=== PATIENT | female | born 1975 ===

== ENCOUNTER → 2016-12-24 | Outpatient (CLI) | payer OTHER ==
--- NOTE | 2016-12-24 13:54 | RAD ---
Indication well-defined mass on screening mammogram. Note is made of the screening examination 10 days earlier demonstrating a well-defined mass at approximately 9:00 position of the left breast. Targeted ultrasound was performed. There is a well-defined mass, compatible with a cyst, at approximately 9:00 position of the breast. It measures approximately 9 mm in greatest dimension. It is compatible with the mammographic finding. IMPRESSION: Apparent cyst at the 9:00 position of the left breast corresponding to the mammographic finding. Follow-up ultrasound and mammography of the left breast suggested in 6 months to further document stability IMPRESSION: BI-RADS 3. Probably benign. Six-month follow-up
== END | disposition home or self-care (01) ==
LOC: US 13:05
PROVIDERS: ATTEND Nurse Practitioner
DX: N63 Unspecified lump in breast (principal)
CPT/HCPCS: 76641

== ENCOUNTER → 2017-06-17 | Outpatient (CLI) | payer OTHER ==
--- NOTE | 2017-06-17 15:54 | RAD ---
DATE: June 17, 2017 EXAM: MAMMO NEIL DIAG LT, BREAST LEFT HISTORY: 6 month follow-up probably benign finding COMPARISON: Mammogram and ultrasound from December 2016. TECHNIQUE: 2-D and 3-D CC and MLO views of the left breast were performed. Limited left breast ultrasound ON was performed. This study was interpreted with the benefit of Computerized Aided Detection (CAD). FINDINGS: The breast parenchyma is extremely dense, category D, which lowers the sensitivity of mammography. There is no worrisome mass or area of architectural distortion. The nodule in the medial left breast on prior study is less apparent on today's mammogram. A few benign calcifications are noted. Ultrasound of the left breast does not redemonstrate the simple cyst noted previously. IMPRESSION: Benign findings. Patient can return to screening status. BI-RADS CATEGORY: 3 PROBABLE BENIGN-SHORT TERM F/U RECOMMENDED FOLLOW-UP: 6M 6 MONTH FOLLOW-UP 6 month follow-up of the left breast as well as annual screening of the right breast which will be due in 6 months is recommended. PQRS compliance statement: Patient information was entered into a reminder system with a target due date for the next mammogram. Mammography is a sensitive method for finding small breast cancers, but it does not detect them all and is not a substitute for careful clinical examination. A negative mammogram does not negate a clinically suspicious finding and should not result in delay in biopsying a clinically suspicious abnormality. "Our facility is accredited by the [employer] Mammography Program."
== END | disposition home or self-care (01) ==
LOC: MAMMO 14:08
PROVIDERS: ATTEND Nurse Practitioner
DX: D24.2 Benign neoplasm of left breast (principal); N63.20 Unspecified lump in the left breast, unspecified quadrant; R92.1 Mammographic calcification found on diagnostic imaging of breast
CPT/HCPCS: 76641; G0206; G0279; 77061; 77065

== ENCOUNTER → 2017-12-17 | Outpatient (CLI) | payer OTHER ==
--- NOTE | 2017-12-18 09:14 | RAD ---
DATE: 12/17/2017 EXAM: DIGITAL SCREEN BILAT W/CAD HISTORY: Routine screening COMPARISON: 06/17/2017 This study was interpreted with the benefit of Computerized Aided Detection (CAD). The breast parenchyma is dense, which could reduce the sensitivity of mammography. Breast parenchyma level density D. FINDINGS: No new or enlarging breast densities are seen. No suspicious microcalcifications are evident. Benign-appearing lymph node type densities in the left axillary region are unchanged. IMPRESSION: Stable mammograms without evidence of malignancy. BI-RADS CATEGORY: 2 BENIGN FINDING(S) RECOMMENDED FOLLOW-UP: 12M 12 MONTH FOLLOW-UP PQRS compliance statement: Patient information was entered into a reminder system with a target due date for the next mammogram. Mammography is a sensitive method for finding small breast cancers, but it does not detect them all and is not a substitute for careful clinical examination. A negative mammogram does not negate a clinically suspicious finding and should not result in delay in biopsying a clinically suspicious abnormality. "Our facility is accredited by the [employer] Mammography [employer]."
== END | disposition home or self-care (01) ==
LOC: MAMMO 15:04
DX: Z12.31 Encounter for screening mammogram for malignant neoplasm of breast (principal)
CPT/HCPCS: 77067

== ENCOUNTER → 2021-06-16 | Outpatient (CLI) | payer OTHER ==
--- NOTE | 2021-06-16 15:35 | RAD ---
CLINICAL INDICATION: BEL CARLISLE, who is 46 years of age, presents for imaging evaluation of the pa lpable area of concern. The area of concern is described to be in the COMPARISON: Prior mammographic imaging 06/17/2017, 12/24/2016 12/17/2017 TECHNIQUE: Diagnostic 3-D views of the bilateral breasts were obtained, utilizing digital technique. Spot compr ession images were also obtained. BREAST COMPOSITION: The breast tissue is heterogenously dense, which could obscure detection of small masses. MAMMOGRAM FINDINGS: There are no suspicious masses, microcalcifications, or architectural distortion to suggest malignanc y in either breast. The visualized axillae appear unremarkable. Given palpable abnormality, ultrasound was performed. ULTRASOUND FINDINGS: Targeted ultrasound of the palpable area of concern at the bilateral breasts was performed. 9:00 position, 6 cm from the nipple: An anechoic avascular mass of circumscribed margins and round/ov al shape is present. It demonstrates posterior acoustic enhancement and a parallel orientation. It me asures 9 x 3 x 5 mm. Otherwise ultrasound imaging of the 9:00 -3:00 position bilaterally, corresponding to the palpable ab normality in both breasts, parenchymal tissue of normal echotexture is present. IMPRESSION: 1. No mammographic evidence of malignancy in either breast. RECOMMENDATION: In the absence of new clinical symptoms or change in physical exam, annual screening mammography is r ecommended BIRADS 2: BENIGN This study was interpreted with the benefit of Computerized Aided Detection (CAD). ?Your patient's mammogram demonstrates that she has dense breast tissue (breast density category C or D), which could hide abnormalities, and if she has other risk factors for breast cancer that have be en identified, she might benefit from supplemental screening tests that may be suggested by you as he r ordering physician. Dense breast tissue, in and of itself, is a relatively common condition. Theref ore, this information is not provided to cause undue concern, but rather to raise your awareness and to promote discussion with your patient regarding the presence of other risk factors, in addition to dense breast tissue. Your patient's mammography results will be sent to her. Patient information is entered into the reminder system with a target due date for the next screening mammogram. Mammography is the most sensitive method for finding small breast cancers, but it does not detect the m all and is not a substitute for careful clinical examination. A negative mammogram does not negate a clinically suspicious finding and should not result in delay in biopsying a clinically suspicious a bnormality. "Our facility is accredited by the [employer] Mammography Program." Electronically signed by: Shan Hairston MD (06/16/2021 3:32 PM) [facility]
== END ==
LOC: MAMMO 13:59
PROVIDERS: ATTEND Nurse Practitioner Family
DX: N63.11 Unspecified lump in the right breast, upper outer quadrant (principal); N63.22 Unspecified lump in the left breast, upper inner quadrant
CPT/HCPCS: 76641; 77066; G0279; 77062